=== PATIENT | male | born 1950 | race Caucasian/White ===

== ENCOUNTER 2025-06-10 07:39 | Outpatient (CLI) | payer MEDICARE, OTHER, SELFPAY ==
--- NOTE | ~2025-06-10 | PE_ITS ---
EXAMINATION: PET_PETPSMAST_PT DATE: 06/10/2025 09:49 INDICATION: Prostate cancer. TECHNIQUE: 4.970 mCi of Ga-68 gozetotide was administered intravenously. Low dose computed tomography (CT) images were acquired from the base of the brain to the proximal thighs for attenuation correction and anatomic localization. Automated exposure control was employed. Dose-length product (DLP) was 1156 mGy- cm. Positron emission tomography (PET) images were acquired in the same distribution. COMPARISON: None FINDINGS: Head/neck: There are no pathologically enlarged lymph nodes. Chest: There is peripheral septal thickening in the lungs, consistent with chronic interstitial lung disease. A calcified right lung nodule and calcified right hilar and mediastinal lymph nodes are consistent with old granulomatous disease. No pleural effusion. There is left atrial enlargement of the heart. No pericardial effusion. Abdomen/pelvis/proximal thighs: There are cysts in the liver measuring up to 10 mm. Calcifications in the liver consistent with old granulomatous disease. The gallbladder, spleen, pancreas, adrenal glands, and kidneys are normal. There is no urolithiasis. The prostate is mildly enlarged. There is increased activity in the peripheral zone on the right with maximum SUV of 7.5. There are no dilated loops of bowel. There are no pathologically enlarged lymph nodes. There is no free intraperitoneal fluid. There are changes of anterior and posterior fusion procedures at L5-S1 with interbody device and pedicle screws. IMPRESSION: 1. Mildly enlarged prostate with increased activity in the peripheral zone on the right, consistent with primary malignancy. No evidence of metastatic disease. Reviewed, dictated and finalized at location E. IMPRESSION: 1. Mildly enlarged prostate with increased activity in the peripheral zone on t he right, consistent with primary malignancy. No evidence of metastatic disease .
--- OUTSIDE RECORDS SUMMARY | 2025-06-10 07:43 | XMS_ITS | Encounter Summary ---
Author Organization [facility] Address [address] [place] [address] Care Team Providers Care Ticket Collector Or Usher Name Role Phone Sarah Lazcano [facility] Primary Care Provider + Encounter Details Date Type Department Care Team (Late st Contact Info) Description 03/10/2025 [employer] Message [facility] [address] [place] [address] [facility] [address] [facility] [address] [place] [address] A1C and PSA Social History Tobacco Use Types Packs/Day Years Used Date Smoking Tobacco: Never Smokeless Tobacco: Never Alcohol Use Standard Drinks/Week Comments Yes 0 (1 standard drink = 0.6 oz pur e alcohol) social PHQ-2 Answer Date Recorded Patient Health Questionnaire-2 Score 0 03/08/2025 Sex and Gender Information Value Date Recorded Sex Assigned at Not on file Legal Sex Male 7:15 PM CDT Gender Identity Not on file Sexual Orientation Not on file Travel History Travel Start Travel End [place] 04/11/2025 05/12/2025 documented as of this encounter Progress Notes * Amalia Penaloza RN - 03/11/2025 7:30 AM CDT TCO in result encounter. AMALIA PENALOZA RN 03/11/2025 documented in this encounter Plan of Treatment Not on file documented as of this encounter Visit Diagnoses Not on filedocumented in this encounter Care Teams Ticket Collector Or Usher Relationship Specialty Start Date End Date Sarah Lazcano, [facility]- [address] [facility], [address] [place] [address] PCP - General NURSE PRACTITIONER 03/08/25 documented as of this encounter
--- OUTSIDE RECORDS SUMMARY | 2025-06-10 07:43 | XMS_ITS | Encounter Summary ---
Author Organization [facility] Address [address] [place] [address] Care Team Providers Care Coat Hanger Shaper Machine Operator Name Role Phone Sarah Lazcano [facility] Primary Care Provider + Encounter Details Date Type Department Care Team (Late st Contact Info) Description 03/10/2025 Prep for Procedure [facility] General Surgery - [place] [address] [facility], [address] [place] [address] Zaid Harris MD [address] [facility] [address] [place], [place] [phone] Social History Tobacco Use Types Packs/Day Years [...] file Travel History Travel Start Travel End [place] 04/11/2025 05/12/2025 documented as of this encounter Plan of Treatment Not on file documented as of this encounter Visit Diagnoses Not on filedocumented in this encounter Care Teams Coat Hanger Shaper Machine Operator Relationship Specialty Start Date End Date Sarah Lazcano, [facility] [address] [facility], [address] [place] [address] PCP - General NURSE PRACTITIONER 03/08/25 documented as of this encounter
--- OUTSIDE RECORDS SUMMARY | 2025-06-10 07:43 | XMS_ITS | Encounter Summary ---
Author Organization [facility] Address [address] [place] [address] Care Team Providers Care Flexo Press Operator Name Role Phone Minda Woodward Nurse Student Primary Care Prov Sarah Richardson [facility] Primary Care Provider + Encounter Details Date Type Department Care Team (Late st Contact Info) Description 05/12/2020 Prep for Procedure [facility] [address] [place], [place] [phone] Obed Padron MD [address] [phone] Social History Tobacco Use Types Packs/Day Years Used Date Smoking Tobacco: Never Smokeless Tobacco: Never Alcohol Use Standard Drinks/Week Comments Yes 0 (1 standard drink = 0.6 oz pur e alcohol) social Sex and Gender Information Value Date Recorded Sex Assigned at Not on file Legal Sex Male 7:15 PM CDT Gender Identity Not on file Sexual Orientation Not on file Travel History Travel Start Travel End [place] 04/11/2025 05/12/2025 COVID-19 Exposure Response Date Recorded In the last month, have you been in contact with someone who was confirmed or suspected to have Coronavirus / COVID-19? No / Unsure 2020 10:36 AM CDT documented as of this encounter Plan of Treatment Not on file documented as of this encounter Results * PRE-SURGICAL/PRE-PROCEDURE CORONAVIRUS (COVID 19) (05/16/2020 11:22 AM CDT) CORONAVIRUS SARS COV 2 PCR (RESP) NOT DETECTED NOT DETECTED 05/17/2020 5:01 PM CDT [facility] Comment: A Not Detected (negative) test result for this test means that SARS- CoV-2 RNA was not present in the specimen above the limit of detection. A negative result does not rule out the possibility of COVID-19 and should not be used as the sole basis for treatment or patient management decisions. If COVID-19 is still suspected, based on exposure history together with other clinical findings, re-testing should be considered in consultation with public health authorities. Laboratory test results should always be considered in the context of clinical observations and epidemiological data in making a final diagnosis and patient management decisions. Please review the Fact Sheets and FDA authorized labeling available for health care providers and patients using the following websites: https://www.[employer]/home/Covid-19/HCP/NAAT/fact-sheet2 https://www.[employer]/home/Covid-19/Patients/NAAT/ fact-sheet2 This test has been authorized by the FDA under an Emergency Use Authorization (EUA) for use by authorized laboratories. Due to the current public health emergency, [facility] is receiving a high volume of samples from a wide variety of swabs and media for COVID-19 testing. In order to serve patients during this public health crisis, samples from appropriate clinical sources are being tested. Negative test results derived from specimens received in non-commercially manufactured viral collection and transport media, or in media and sample collection kits not yet authorized by FDA for COVID-19 testing should be cautiously evaluated and the patient potentially subjected to extra precautions such as additional clinical monitoring, including collection of an additional specimen. Methodology: Nucleic Acid Amplification Test (NAAT) includes PCR or TMA Additional information about COVID-19 can be found at the [facility] website: www.[employer]/Covid19. Test performed at [facility] [address] [place] [address] Director: ZOEY EVANS DO,MPH NASOPHARYNGEAL SWAB / Unknown 05/16/2020 11:22 AM CDT Obed Padron MD MICROBIOLOGY - GENERAL ORDERABLE S Final Result [facility] [address] [place] [address], documented in this encounter Visit Diagnoses Diagnosis Preop testing- Primary Preoperative examination, unspecified documented in this encounter Additional Health Concerns Infection Onset Date Last Indicated Resolved Time COVID-19 Rule Out 05/16/2020 05/16/2020 05/17/2020 5:01 PM CDT documented as of this encounter Care Teams Flexo Press Operator Relationship Specialty Start Date End Date Minda Woodward, Nurse Student PCP - General 03/02/20 03/07/25 Sarah Lazcano, ENDO TECH- [address] [facility], [address] [place] [address] PCP - General NURSE PRACTITIONER 03/08/25 documented as of this encounter
--- OUTSIDE RECORDS SUMMARY | 2025-06-10 07:43 | XMS_ITS | Clinical Summary ---
Author Organization [facility] Address [address] [place] [address] Care Team Providers Care Shower Room Attendant Name Role Phone Unavailable Primary Care Provider Unavailabl e Immunizations Immunization Administration Dates Next Due Covid-19, Mrna, Lnp-s, PF, 1 00 mcg/0.5 mL Dose (Moderna) 07/07/2021 Social History Tobacco Use Types Packs/Day Years Used Date Smoking Tobacco: Never Assessed Sex and Gender Information Value Date Recorded Sex Assigned at Not on file Legal Sex Male 11:57 AM CDT Gender Identity Not on file Sexual Orientation Not on file Plan of Treatment Health Maintenance Due Date Last Done Comments Hepatitis C Virus (HCV) Screening 1950 TdaP Immunization 1950 Cologuard 1996 Colonoscopy 1996 Colorectal Cancer Screening 1996 Immunochemical Fecal Occult Blood 1996 Pneumococcal Immunization (5 0+ years) (1 of 1 - PCV) 2001 Influenza Immunization (#1) 05/16/202506/16, 08/03/2019, 06/19/2017 SARS-COV-2 Immunization ( season) 2025 07/07/2021, 12/13/2020, 11/14/2020 Respiratory Syncytial Virus (RSV) Immunization (Adult) (1 - 1-dose 75+ series) 2026 Zoster Immunization Completed 07/16/2019, 01/27/2019, 08/03/2014 Hepatitis B Immunization Aged Out No longer eligible based on patient's age to complete this topic Human Papillomavirus (HPV) Immunization Aged Out No longer eligible b ased on patient's age to complete this topic Meningococcal Immunization (ACWY) Aged Out No longer eligible b ased on patient's age to complete this topic Rotavirus Immunization Aged Out No lo nger eligible based on patient's age to complete this topic
--- OUTSIDE RECORDS SUMMARY | 2025-06-10 07:43 | XMS_ITS | Encounter Summary ---
Author Organization [facility] Address [address] [place] [address] Care Team Providers Care Invas Tech Name Role Phone Minda Woodward Nurse Student Primary Care Prov Sarah Richardson [facility] Primary Care Provider + Encounter Details Date Type Department Care Team (Late st Contact Info) Description 04/07/2020 Prep for Procedure [facility] [place], [place] [phone] Obed Padron MD [address] [phone] Social History Tobacco Use Types Packs/Day Years [...] file Travel History Travel Start Travel End [place] 04/11/2025 05/12/2025 COVID-19 Exposure Response Date Recorded In the last month, have you been in contact with someone who was confirmed or suspected to have Coronavirus / COVID-19? No / Unsure 03/27/2020 11:23 AM CDT documented as of this encounter Plan of Treatment Not on file documented as of this encounter Results * PRE-SURGICAL/PRE-PROCEDURE CORONAVIRUS (COVID 19) (04/07/2020 1:00 PM CDT) CORONAVIRUS SARS COV 2 PCR (RESP) NOT DETECTED NOT DETECTED 04/08/2020 3:08 PM CDT [facility] Comment: A Not Detected (negative) test result [...] providers and patients using the following websites: https://www.[employer].Fundrise/home/Covid-19/HCP/NAAT/fact-sheet2 https://www.[employer]rise/home/Covid-19/Patients/NAAT/ fact-sheet2 This test has been authorized by the FDA under an Emergency Use Authorization (EUA) for use by authorized laboratories. Due to the current public health emergency, [facility] is receiving a high volume of samples [...] about COVID-19 can be found at the [facility] website: www.[employer].Fundrise/Covid19. Test performed at [facility] [address] [place] [address] Director: ZOEY EVANS DO,MPH NASOPHARYNGEAL SWAB / Unknown 04/07/2020 1:00 PM CDT Obed Padron MD MICROBIOLOGY - GENERAL ORDERABLE S Final Result [facility] [address] [place] [address], documented in this encounter Visit Diagnoses Diagnosis History of esophagogastroduodenoscopy (EGD)- Primary documented in this encounter Additional Health Concerns Infection Onset Date Last Indicated Resolved Time COVID-19 Rule Out 04/07/2020 04/07/2020 04/08/2020 3:08 PM CDT COVID-19 Rule Out 05/16/2020 05/16/2020 05/17/2020 5:01 PM CDT documented as of this encounter Care Teams Invas Tech Relationship Specialty Start Date End Date Minda Woodward, Nurse Student PCP - General 03/02/20 03/07/25 Sarah Lazcano, BELT FIXER- [address] [facility], [address] [place] [address] PCP - General NURSE PRACTITIONER 03/08/25 documented as of this encounter
--- OUTSIDE RECORDS SUMMARY | 2025-06-10 07:44 | XMS_ITS | Clinical Summary ---
Author Organization [facility] Address [address] [place] [address] Care Team Providers Care School Bus Attendant Name Role Phone Sarah Lazcano NP Primary Care Provide r Sangeeta Ramirez OD Unavailable [phone] Allergies No known active allergies Medications atorvastatin (LIPITOR) 20 mg tabletIndicatio ns:hyperlipidem ia Take 1 tablet (20 mg total) by mouth every morning Active sildenafiL (VIAGRA) 100 mg tablet Take 1 tablet (100 mg total) by mouth as needed for erectile dysfunction 0 Active CertaVite Senior-Antioxid ant 0.4-300-250 mg-mcg-mcg tabletIndicatio ns:Vitamin Deficiency Prevention Take 1 tablet by mouth every morning 0 Active cetirizine (ZyrTEC) 10 mg tabletIndicatio ns:Allergic Rhinitis Take 1 tablet (10 mg total) by mouth as needed for allergies 0 Active fexofenadine (SOLITARIO) 180 mg tabletIndicatio ns:Allergic Rhinitis Take 1 tablet (180 mg total) by mouth as needed Active Jardiance 10 mg tabletIndicatio ns:type 2 diabetes mellitus Take 1 tablet (10 mg total) by mouth every morning 1 Active fluticasone propionate (FLONASE) 50 mcg/actuation nasal sprayIndication s:Allergic Rhinitis Administer 2 sprays into each nostril daily 2 Active lisinopriL (PRINIVIL,ZESTR IL) 10 mg tabletIndicatio ns:hypertension Take 1 tablet (10 mg total) by mouth every morning 2 Active miconazole 2 % cream 2 Active acetaminophen (TYLENOL) 500 mg tablet Take 1 tablet (500 mg total) by mouth every 6 (six) hours as needed for pain Active oxyCODONE (ROXICODONE) 5 mg immediate release tabletIndicatio ns:Pain Take 1 tablet (5 mg total) by mouth every 4 (four) hours as needed for pain 20 tablet 2 Active docusate sodium (COLACE) 100 mg capsuleIndicati ons:constipatio n Take 1 capsule (100 mg total) by mouth 2 (two) times a day 60 capsule 2 Active clotrimazole 1 % cream 5 Active nystatin powder 5 Active tadalafiL (CIALIS) 20 mg tablet 5 Active tirzepatide (Mounjaro) 2.5 mg/0.5 mL pen injector injection Inject 0.5 mL (2.5 mg total) under the skin once a week 5 Active omeprazole (PriLOSEC) 20 mg capsule 5 Active Active Problems Problem Noted Date Diagnosed Date Diabetes mellitus type 2 without retinopathy Assessment & Plan (05/05/2025 4:19 PM CDT): No DME on OCT Pt ed. Stressed BG control (HbA1C<7) to reduce the risk for diabetic ocular complications. PVD (posterior vitreous detachment), left eye Assessment & Plan (07/12/2024 11:46 AM CDT): No holes/breaks/tears on exam. Educated on s/s of a retinal detachment/tear, RTC STAT if any new onset flashes, floaters or curtain veiling. RTC 05/09 w/ Dr. Gautam for annual, sooner if symptoms worsen Assessment & Plan (06/02/2024 11:38 AM CDT): Small vitreous (vit) heme inf w/ martin ring. No holes/breaks/tears on dilated exam. Educated on s/s of a retinal detachment/tear, RTC STAT if any new onset flashes, floaters, curtain veiling. RTC 1 month for DFE left eye (OS) (pt will be out of town until end of Oct - will schedule when back) Optic cupping of both eyes 05/10/2024 Epiretinal membrane (ERM) of left eye 05/10/2024 Assessment & Plan (05/05/2025 4:16 PM CDT): Best-corrected visual acuity (BVA) remains good Stable on OCT Assessment & Plan (06/02/2024 11:39 AM CDT): Stable, monitor. Hyperopia of both eyes 05/04/2024 Assessment & Plan (05/04/2024 12:54 PM CDT): Release updated glasses Rx Interested in CLs- recommend soft contact lens (CL) fitting/refer to Dr. Ramirez Age-related nuclear cataract of both eyes 2023 Assessment & Plan (05/05/2025 4:16 PM CDT): Pt is asymptomatic. Defer cataract extraction (CE) until signs/sx indicate. Recommend UV eye protection. Release updated glasses Rx Assessment & Plan (06/02/2024 11:39 AM CDT): Stable, monitor. Assessment & Plan (05/04/2024 12:54 PM CDT): Pt is asymptomatic. Defer cataract extraction (CE) until signs/sx indicate. Recommend UV eye protection. Peyronie's disease 03/28/2022 Overview (03/28/2022): Added automatically from request for surgery [id number] Spondylolisthesis of lumbar region 01/29/2021 Overview (01/29/2021): Added automatically from request for surgery [id number] Displacement of lumbar intervertebral disc 07/05 Lumbago 07/04/2020 Lumbar radiculopathy 07/04/2020 Acid reflux disease 05/05/2020 Overview (01/30/2022): Added automatically from request for surgery [id number] History of total right knee replacement 01/02/20 16 Osteoarthritis of knee 10/11/2015 Surgical follow-up care 11/27/2012 Encounters Date Type Department Care Team Description 05/05/2025 1:30 PM CDT Office Visit [facility] Ophthalmology [facility] [address] [facility], [address] [place] [address] Melisa Gautam, OD Age-related nuclear cataract of both eyes (Primary Dx); Epiretinal membrane (ERM) of left eye; Optic cupping of both eyes; Hyperopia of both eyes; Diabetes mellitus type 2 without retinopathy (HCC) 05/05/2025 12:40 PM CDT Imaging Exam [facility] [address] [place] [address] Epiretinal membrane (ERM) of left eye; Acute angle-closure glaucoma, left eye 04/04/2025 Orders Only [facility] Ophthalmology [address] [facility] [address], [address] [place] [address] Melisa Gautam, OD Epiretinal membrane (ERM) of left eye (Primary Dx) from Last 3 Months Immunizations Immunization Administration Dates Next Due Influenza, Trivalent, Adjuvanted, Intramuscular 08/03/2019 Influenza, Trivalent, Preservative Free, Intramu scular 07/06/2012 Influenza, Unspecified 06/15/2020 Moderna SARS-CoV-2 Monovalent Vaccination (12+ Y RS) 12/13/2020,11/14/2020 Surgical History Surgery Date Site/Laterality Comments REPLACEMENT TOTAL KNEE 09/15/2012 - 09/14/2013 Left REPLACEMENT TOTAL KNEE 09/15/2015 - 09/14/2016 Right TONSILLECTOMY 09/15/1953 - 09/14/1954 EYE SURGERY 09/15/2013 - 09/14/2014 KNEE SURGERY 09/15/1972 - 09/14/1973 BACK SURGERY 09/15/2020 - 09/14/2021 Medical History Medical History Date Comments Aftercare following joint re placement surgery Aftercare following joint replacement - (Added by TRACI Conv) Ear problems Dermatitis Gastric reflux Mitral valve prolapse Sinusitis Arthritis Sleep apnea Dermographism Nuclear sclerotic cataract, bilateral Hyperopia with presbyopia, bilateral Wears glasses PVD (posterior vitreous deta chment), left eye 07/12/2024 Epiretinal membrane (ERM) of left eye Optic cupping, bilateral C/D rat io OU (0.4) Family History Medical History Relation Name Comments Hypertension Mother Anesthesia problems Neg Hx Relation Name Status Comments Father Mother Social History Tobacco Use Types Packs/Day Years Used Date Smoking Tobacco: Never Smokeless Tobacco: Never Tobacco Cessation:Counseling Given: No Alcohol Use Standard Drinks/Week Comments Yes 0 (1 standard drink = 0.6 oz pur e alcohol) SELDOM WINE DRINKER AUDIT-C Answer Date Recorded Q1: How often do you have a drink containing alc ohol? Monthly or less 05/03/2022 Q2: How many drinks containi ng alcohol do you have on a typical day when you are drinking? 1 or 2 05/03/2022 Q3: How often do you have si x or more drinks on one occasion? Never 05/03/2022 PHQ-2 Answer Date Recorded PHQ-2 Total Score (If total score is 3 or more points, staff should administer the PHQ-9) 0 02/07/2021 Sex and Gender Information Value Date Recorded Sex Assigned at Not on file Legal Sex Male 11:56 PM [employer] Gender Identity Male 01/28/2020 10:38 PM CDT Sexual Orientation Not on file Occupation Industry Job Start Date Job End Date Retired Not on file Not on file Not on file Obstetrics History Last Filed Vital Signs Vital Sign Reading Time Taken Comments Blood Pressure 129/84 05/03/2022 12:20 PM CDT Pulse 58 05/03/2022 12:25 PM CDT Temperature 36.2 C (97.2 F) 05/03/2022 8:44 AM CDT Respiratory Rate 14 05/03/2022 12:2 5 PM CDT Oxygen Saturation 100% 05/03/2022 12: 25 PM CDT Inhaled Oxygen Concentration - - Weight 98.9 kg (218 lb) 04/22/2022 11:0 0 AM CDT Height 182.9 cm (6') 04/22/2022 11:00 AM CDT pt is 6f 0.5 inches Body Mass Index 29.57 04/22/2022 11:00 AM CDT Plan of Treatment Health Maintenance Due Date Last Done Comments Albumin Creatinine Ratio, Urine 1950 Colon Cancer Screening-Colonoscopy 1950 Hemoglobin A1C 1950 Hepatitis C Screening 1950 eGFR 1950 Foot Exam 1950 Well Visit 65+ 2016 Depression Screening 01/29/2022 01/29/2021 Fall Risk Assessment 05/03/2023 05/03/2022 Covid-19 Vaccine (2024- 6 season) 2025 07/07/2021, 12/13/2020, 11/14/2020 Influenza Vaccine (#1) 2025 , 07/05/2020, 06/15/2020, Additional history exists Lipid Panel 03/08/2026 03/08/2025 Dilated Eye Exam 05/05/2026 05/05/2025, , 06/02/2024, Additional history exists DTaP/Tdap/Td Vaccine (3 - Td or Tdap) 11/19/2027 11/18/2017, 10/24/2007, 10/15/1997, Additional history exists Hepatitis B Screening Completed 02/22/1993 Pneumococcal vaccine 65+ Completed 11/18/2017, 07/17 Zoster Vaccine Completed 07/16/2019, 01/13, 08/03/2014 Medical Devices Implanted Type Area Junior Analyst Device Identifier Shelf Expiration Date Model / Serial / Lot [employer] [id number] r Estefaniron Ia [id number] 17mm 20deg - [id number] Implanted:Qty: 1 on 02/07/2021 by Santana Allen MD at [facility] N/A: Spine Lumbar [employer] 10/27/2030 [id number] / / [id number] [employer] [id number] - [id number] - [id number] Implanted:Qty: 1 on 02/07/2021 by Santana Allen MD at [facility] N/A: Spine Lumbar [employer] 12/19/2025 [id number] / [id number] / Medtronic Sofamor Danek [id number] Infuse 18mm 26mm Absorbable Sponge Sterile Water Syringe Needle - [id number] Implanted:Qty: 1 on 02/07/2021 by Santana Allen MD at [facility] N/A: Spine Lumbar [employer] [id number] / / [employer] 1135.0027 Mis 27mm Lumbar Edward Spinal - [id number] Implanted:Qty: 1 on 02/07/2021 by Santana Allen MD at [facility] N/A: Spine Lumbar [employer] 1135.0027 / / [employer] 1067.4655 Creo Amp 6.5mm 55mm Cannulated Modular Spine Screw Bone - [id number] Implanted:Qty: 2 on 02/07/2021 by Santana Allen MD at [facility] N/A: Spine Lumbar [employer] 1067.4655 / / [employer] 1067.4760 Creo 7.5mm 60mm Cannulated Modular Spine Screw Bone - [id number] Implanted:Qty: 2 on 02/07/2021 by Santana Allen MD at [facility] N/A: Spine Lumbar [employer] [id number] / / [employer] 1134.01 Creo Mis 30mm Modular Polyaxial Tulip Head Screw Bone - [id number] Implanted:Qty: 4 on 02/07/2021 by Santana Allen MD at [facility] N/A: Spine Lumbar [employer] 1134.0100 / / [employer] 1134.001 Creo Spinal Cap Locking Nonsterile Mis - [id number] Implanted:Qty: 4 on 02/07/2021 by Santana Allen MD at [facility] N/A: Spine Lumbar [employer] 1134.0010 / / [employer] 7134.705 Creo Mis 5.5mm 50mm Curve Shawn Spinal Cocr - [id number] Implanted:Qty: 2 on 02/07/2021 by Santana Allne MD at [facility] N/A: Spine Lumbar [facility] [id number] / / Procedures Procedure Name Priority Date/Time Associated Diagnosis Comments OCT, RETINA - OU - BOTH EYES Routine 05/05/2025 12:28 PM CDT Epiretinal membrane (ERM) of left eye OCT, OPTIC NERVE - OU - BOTH EYES Routine 05/05/2025 12:28 PM CDT Epiretinal membrane (ERM) of left eye Acute angle-closure glaucoma, left eye from Last 3 Months Results * OCT, Retina - OU - Both Eyes (05/05/2025 12:28 PM CDT) Anatomical Region Laterality Modality Head Other Narrative 05/05/2025 4:18 PM CDT Right Eye Quality was good. Scan locations included subfoveal. Left Eye Quality was good. Scan locations included subfoveal. Notes Right eye (OD) normal Left eye (OS): para foveal epiretinal membrane (ERM) superior Melisa Gautam OD OPHTH TOMOGRAPHY Final Res ult * OCT, Optic Nerve - OU - Both Eyes (05/05/2025 12:28 PM CDT) Anatomical Region Laterality Modality Head Other Narrative 05/05/2025 4:17 PM CDT Right Eye Reliability was good. Temporal thickness was normal. Superior thickness was normal. Nasal thickness was normal. Inferior thickness was normal. Left Eye Reliability was good. Temporal thickness was normal. Superior thickness was normal. Nasal thickness was normal. Inferior thickness was normal. Melisa Gautam OD OPHTH TOMOGRAPHY Final Res ult from Last 3 Months Insurance MEDICARE FOR LIFE MEDICARE FOR LIFE MEDICARE MEDICARE FOR LIFE Advance Directives For more information, please contact: [phone] * Full Code (Latest Code Status on File) Date Activated Date Inactivated Comments 02/07/2021 8:23 PM 02/09/2021 8:25 PM Care Teams School Bus Attendant Relationship Specialty Start Date End Date Sarah Lazcano NP [address], [address] [place] [id number] PCP - General Nurse Practitioner 8/21/25 Sangeeta Ramirez, OD [address] [facility] [id number] [place] [address] Consulting Physician Optometry 05/05/25
--- OUTSIDE RECORDS SUMMARY | 2025-06-10 07:44 | XMS_ITS | Clinical Summary ---
Author Organization [facility] Address Formerly [facility], [facility] [place] [address] Care Team Providers Care Transit Planning Director Name Role Phone NenoSarah calvin [facility] Primary Care Provider + Allergies No known active allergies Medications acetaminophen (TYLENOL) 500 MG tablet Take 1 tablet (500 mg total) by mouth every 6 (six) hours as needed. FOR PAIN Active ALLERGY, CETIRIZINE, 10 MG tablet daily as needed. 020 Active atorvastatin (LIPITOR) 20 MG tabletIndications :Mixed hyperlipidemia Take 1 tablet (20 mg total) by mouth daily. 90 tablet 1 025 Active clotrimazole (LOTRIMIN) 1 % creamIndications: Marilyn infection Apply topically 2 (two) times daily. 113 g 1 025 Active Additional Information Patient taking differently:Topical2 times daily PRN, Reported on 05/12/2025 fexofenadine (SOLITARIO) 180 MG tabletIndications :Seasonal allergic rhinitis due to pollen Take 1 tablet (180 mg total) by mouth daily. 30 tablet 6 025 Active Additional Information Patient taking differently:180 mg OralDAILY PRN, Reported on 05/18/2025 fluticasone propionate (FLONASE) 50 MCG/ACT nasal sprayIndications: Seasonal allergic rhinitis due to pollen 2 sprays by Each Nostril route daily. 16 g 6 025 Active Additional Information Patient taking differently:2 spray Each NostrilDAILY PRN, Rhinitis, Allergies, Reported on 05/18/2025 omeprazole (PRILOSEC) 20 MG capsuleIndication s:Gastroesophagea l reflux disease without esophagitis Take 1 capsule (20 mg total) by mouth daily. 90 capsule 1 025 Active tirzepatide (MOUNJARO) 2.5 MG/0.5ML injectionIndicati ons:Diabetes Mellitus Inject 2.5 mg into the skin every 7 days. Indications: Diabetes 6 mL 1 025 Active tadalafil (CIALIS) 20 MG tablet Take 1 tablet (20 mg total) by mouth daily as needed for Erectile Dysfunction. 025 Active empagliflozin (JARDIANCE) 25 MG tabletIndications :Type 2 diabetes mellitus with hyperglycemia, without long-term current use of insulin ([facility]) Take 1 tablet (25 mg total) by mouth daily. 90 tablet Active JARDIANCE 10 MG tabletIndications :Type 2 diabetes mellitus with hyperglycemia, without long-term current use of insulin ([facility]) Take 1 tablet (10 mg total) by mouth daily. 90 tablet 1 025 2024 Discontinued(D ose adjustment) empagliflozin (JARDIANCE) 25 MG tabletIndications :Type 2 diabetes mellitus with hyperglycemia, without long-term current use of insulin ([facility]) Take 1 tablet (25 mg total) by mouth daily. 90 tablet 025 2024 Discontinued Active Problems Problem Noted Date Diagnosed Date Elevated PSA 05/18/2025 Chronic low back pain 04/05/2025 Acid reflux disease 05/05/2020 Overview (05/05/2020): Added automatically from request for surgery [id number] Resolved Problems Problem Noted Date Diagnosed Date Resolved Date Screen for colon cancer 03/10/2025 06 Screen for colon cancer 03/10/202504/15 Screen for colon cancer 03/10/202504/15 Screen for colon cancer 03/10/2025 0909/2024 Encounters Date Type Department Care Team Description 05/30/2025 MyChart Message [facility] [address] [place] [address] Sarah Lazcano, CROP PULLER-BC Jardiance 05/18/2025 8:05 AM CDT Anesthesia [place] [address] Gus Arnold MD Jarvis, Brittany L, CNP 05/18/2025 7:30 AM CDT - 05/18/2025 8:14 AM CDT [place] [address] Huan Rhodes MD TRANSRECTAL ULTRASOUND FUSION-GUIDED PROSTATE BIOPSY 05/18/2025 5:30 AM CDT - 05/18/2025 9:25 AM CDT Hospital Encounter [facility] [address] Huan Rhodes MD Discharge Disposition: Home or Self Care (Routine Discharge) 05/18/2025 Travel 05/12/2025 4:05 PM CDT - 05/12/2025 11:59 PM CDT Hospital Encounter [facility] [address] [place] [address], [place] [address] Huan Rhodes MD Discharge Disposition: Home or Self Care (Routine Discharge) 05/12/2025 Prep for Procedure [facility] [address] [place] [address], [place] [address] Huan Rhodes MD 05/12/2025 Travel 05/10/2025 8:07 AM CDT - 05/10/2025 8:30 AM CDT [facility] [address] [place] [place] [address] Zaid Harris MD COLONOSCOPY 05/10/2025 8:06 AM CDT Anesthesia Event [facility] [address] [place] [address] Gus Cruz CRNA Portera Mankins, Sally B, MD 05/10/2025 6:44 AM CDT - 05/10/2025 9:25 AM CDT Hospital Encounter [facility] [address] [place] [address] Zaid Harris MD Discharge Disposition: Home or Self Care (Routine Discharge) 05/10/2025 Travel 05/06/2025 12:50 PM CDT - 05/06/2025 11:59 PM CDT Hospital Encounter [facility] [address] [place] [address] Kya Prajapati, PT Sarah Lazcano, CROP PULLER-BC Low Back Pain (06/24 PN) Discharge Disposition: Home or Self Care (Routine Discharge) 05/06/2025 Travel 05/03/2025 1:16 PM CDT - 05/03/2025 11:59 PM CDT Hospital Encounter [facility] [address] [place] [address] Sarah Lazcano, CROP PULLER-BC Jessica Ashton, INSTRUMENT REPAIRER STEAM PLANT Low Back Pain (05/25) Discharge Disposition: Home or Self Care (Routine Discharge) 05/03/2025 Travel 05/02/2025 Scan [facility] 2025 10:14 AM CDT - 2025 11:59 PM CDT Hospital Encounter [facility] [address] [place] [address] Sarah Lazcano, CROP PULLER-BC Wilmer Britt, INSTRUMENT REPAIRER [employer] Low Back Pain (04/24) Discharge Disposition: Home or Self Care (Routine Discharge) 2025 Travel 04/26/2025 10:11 AM CDT - 04/26/2025 11:59 PM CDT Hospital Encounter [facility] [address] [place] [address] Sarah Lazcano, CROP PULLER-BC Jessica Ashton, INSTRUMENT REPAIRER [employer] Low Back Pain (7/10) Discharge Disposition: Home or Self Care (Routine Discharge) 04/26/2025 MyChart Message [facility] [address] [place] [address] Sarah Lazcano [facility] Bhandari 04/26/2025 Travel 04/21/2025 10:45 AM CDT - 04/21/2025 11:59 PM CDT Hospital Encounter [facility] [address] [place] [address] Sarah Lazcano, [facility]-Wilmer Walsh, INSTRUMENT REPAIRER [employer] Low Back Pain (02/22) Discharge Disposition: Home or Self Care (Routine Discharge) 04/21/2025 Travel 04/19/2025 10:15 AM CDT - 04/19/2025 11:59 PM CDT Hospital Encounter [facility] [address] [place] [address] Sarah Lazcano, [facility]-Jessica Redmond, INSTRUMENT REPAIRER [employer] Low Back Pain (01/22) Discharge Disposition: Home or Self Care (Routine Discharge) 04/19/2025 Travel 04/14/2025 1:12 PM CDT - 04/14/2025 11:59 PM CDT Hospital Encounter [facility] [address] [place] [address] Sarah Lazcano, [facility]Wilmer Walsh, INSTRUMENT REPAIRER [employer] Low Back Pain (12/23) Discharge Disposition: Home or Self Care (Routine Discharge) 04/14/2025 Travel 04/12/2025 9:47 AM CDT - 04/12/2025 11:59 PM CDT Hospital Encounter [facility] [address] [place] [address] Sarah Lazcano [facility]-Jessica Redmond, INSTRUMENT REPAIRER [employer] Low Back Pain (10) Discharge Disposition: Home or Self Care (Routine Discharge) 04/12/2025 Travel 04/07/2025 1:15 PM CDT - 04/07/2025 11:59 PM CDT Hospital Encounter [facility] [address] [place] [address] Sarah Lazcano, CROP PULLER-BC Wilmer Britt, INSTRUMENT REPAIRER [employer]ANT Low Back Pain (10/25) Discharge Disposition: Home or Self Care (Routine Discharge) 04/07/2025 Travel 04/05/2025 10:24 AM CDT - 04/05/2025 11:59 PM CDT Hospital Encounter [facility] [address] [place] [address] Liliane Leon, PT Sarah Lazcano, CROP PULLER-BC Kya Prajapati, PT Low Back Pain (09/24) Discharge Disposition: Home or Self Care (Routine Discharge) 04/05/2025 Travel 04/04/2025 MyChart Message Enc [facility] [address] [place] [address] Sarah Lazcano, CROP PULLER-BC PSA - Urologist 04/04/2025 Travel 04/01/2025 MyChart Message Enc [place] [id number] [place] [address] Sarah Lazcano, CROP PULLER-BC Mounjaro 2.5 mg 03/10/2025 MyChart Message [place] [address] [place] [address] Sarah Lazcano, CROP PULLER-BC A1C and PSA 03/10/2025 Telephone [facility] [place] [id number] [facility], [address] [place] [address] Zaid Harris MD Schedule Surgery 03/10/2025 Prep for Procedure [facility] Surgery - [place] [address] [facility], [address] [place] [address] Zaid Harris MD 03/10/2025 Prep for Procedure [facility] General Surgery - [place] [address] [facility], [address] [place] [address] Zaid Harris MD from Last 3 Months Family History Medical History Relation Comments No Known Problems Father No Known Problems Maternal Aunt No Known Problems Maternal Grandfather No Known Problems Maternal Grandmother No Known Problems Maternal Uncle Hypertension Mother No Known Problems Paternal Aunt No Known Problems Paternal Grandfather No Known Problems Paternal Grandmother No Known Problems Paternal Uncle Relation Status Comments Father Maternal Aunt Maternal Grandfather Maternal Grandmother Maternal Uncle Mother Paternal Aunt Paternal Grandfather Paternal Grandmother Paternal Uncle Social History Tobacco Use Types Packs/Day Years Used Date Smoking Tobacco: Never Smokeless Tobacco: Never Tobacco Cessation:Counseling Given: No Alcohol Use Standard Drinks/Week Comments Yes 1 (1 standard drink = 0.6 oz pur e alcohol) social PHQ-2 Answer Date Recorded Patient Health Questionnaire-2 Score 0 03/08/2025 Sex and Gender Information Value Date Recorded Sex Assigned at Not on file Legal Sex Male 7:15 PM CDT Gender Identity Not on file Sexual Orientation Not on file Travel History Travel Start Travel End [place] 04/11/2025 05/12/2025 Last Filed Vital Signs Vital Sign Reading Time Taken Comments Blood Pressure 141/82 05/18/2025 9:25 AM CDT Pulse 59 05/18/2025 9:25 AM CDT Temperature 36.4 C (97.6 F) 05/18/2025 9:25 AM CDT Respiratory Rate 16 05/18/2025 9:25 AM CDT Oxygen Saturation 98% 05/18/2025 9:25 AM CDT Inhaled Oxygen Concentration - - Weight 93.7 kg (206 lb 9.1 oz) 05/18/2025 6:00 A M CDT Height 182.9 cm (6') 05/18/2025 6:00 AM CDT Body Mass Index 28.02 05/18/2025 6:00 AM CDT Plan of Treatment Health Maintenance Due Date Last Done Comments Diabetes: Retinopathy Eye Exam 1969 Annual Medicare Wellness Visit 2016 COVID-19 Vaccine ( season) 2025 06/07/2024, 07/30/2022, 07/07/2021, Additional history exists Hemoglobin A1C 09/07/2025 03/08/2025 Kidney Health Evaluation 03/08/2026 03/08/2025 Lipid Panel 03/08/2026 03/08/2025 RSV Immunization or 60+ Years (1 - 1-dose 75+ series) 2026 DTaP, Tdap and Td Vaccines (3 - Td or Tdap) 11/19/2027 11/18/2017, 10/24/2007, 10/15/1997, Additional history exists Colorectal Cancer Screening Colonoscopy (10 Years) 05/10/2035 05/10/2025 Meningococcal Vaccine Aged Out 08/20/2002 , 03/26/2002, 03/26/1997 No longer eligible based on patient's age to complete this topic Pneumococcal Vaccine: 50+ Years Completed 11/18/2017, 08/05/2016 Zoster Vaccines Completed 07/16/2019, 01/13, 08/03/2014 Hepatitis C Completed 03/08/2025 PHQ-2 (Physician [place]) Completed 03/08/2025 Meningococcal B Vaccine Aged Out No l onger eligible based on patient's age to complete this topic RSV Immunizations Under 20 Months Aged Out No longer eligible based on patient's age to complete this topic Medical Devices Implanted Type Area Pipe Fitter Supervisor Maintenance Device Identifier Shelf Expiration Date Model / Serial / Lot Knee Components Knee Components Procedures Procedure Name Priority Date/Time Associated Diagnosis Comments POCT GLUCOSE - DOCKED DEVICE Routine 05/18/2025 8:32 AM CDT BIOPSY OF PROSTATE,NEEDLE/PUNC H 05/18/2025 8:06 AM CDT ELEVATED PROSTATE SPECIFIC ANTIGEN R97.20 Case Notes SCHED BY FAX 05/12/2025 Special Needs [facility] CONFIRMATION # [id number] POCT GLUCOSE - DOCKED DEVICE Routine 05/18/2025 6:35 AM CDT PATHOLOGY Routine 05/18/2025 12:00 AM CDT URINE BACTERIA CULTURE Routine 05/12/2025 4:19 PM CDT Elevated prostate specific antigen (PSA) Diabetes mellitus treated with oral medication ([facility]) PROTHROMBIN TIME, VENOUS Routine 05/12/2025 4:12 PM CDT Elevated prostate specific antigen (PSA) H/O diabetes mellitus PARTIAL THROMBOPLASTIN TIME,PTT Routine 05/12/2025 4:12 PM CDT Elevated prostate specific antigen (PSA) Inadequately controlled diabetes mellitus (CMS/HCC HHS/HCC) HC URINALYSIS AUTO W/O MICRO Routine 05/12/2025 4:12 PM CDT Elevated prostate specific antigen (PSA) BASIC METABOLIC PANEL Routine 05/12/2025 4:12 PM CDT Elevated prostate specific antigen (PSA) CBC W/DIFF AUTOMATED Routine 05/12/2025 4:12 PM CDT Elevated prostate specific antigen (PSA) COLONOSCOPY FLX DX W/COLLJ SPEC WHEN PFRMD 05/10/2025 8:02 AM CDT Screen for colon cancer Special Needs Patient is diabetic. POCT GLUCOSE - DOCKED DEVICE Routine 05/10/2025 7:36 AM CDT COLONOSCOPY Routine 05/10/2025 7:09 AM CDT HEPATITIS C ANTIBODY Routine 03/08/2025 1:56 PM CDT Need for hepatitis C screening test LIPID PANEL Routine 03/08/2025 1:56 PM CDT Type 2 diabetes mellitus with hyperglycemia, without long-term current use of insulin (CMS/HCC HHS/HCC) HEMOGLOBIN, GLYCOSYLATED Routine 03/08/2025 1:56 PM CDT Type 2 diabetes mellitus with hyperglycemia, without long-term current use of insulin (CMS/HCC HHS/HCC) from Last 3 Months or Most Recently Relevant to Health Maintenance Results * (ABNORMAL) POCT glucose (05/18/2025 8:32 AM CDT) Only the most recent of3 resultswithin the time period is included. GLUCOSE POC 182(H) 70 - 99 mg/dL 05/18/2025 8:33 AM CDT [facility] 05/18/2025 8:32 AM CDT Huan Rhodes MD POCT ORDERABLES - DEVICE Final Result [facility] [address] [place] [address], * Pathology (05/18/2025 12:00 AM CDT) PATHOLOGY [facility] Department of Laboratory Medicine [address] [place] [phone] , extension [id number] Pathology Report Surgical Pathology Report Name: PEPE LIN Specimen #: [id number] Age: 8 1950 (Age: 75) Location: [facility] Sex: M Procedure Date: 05/18/2025 [facility] #: [id number] Date Received: 05/18/2025 Date Reported: 05/24/2025 Provider: HUAN RHODES MD Source: A: Prostate, left lateral base, needle biopsy B: Prostate, left base, needle biopsy C: Prostate, left lateral mid, needle biopsy D: Prostate, left medial mid, needle biopsy E: Prostate, left lateral apex, needle biopsy F: Prostate, left medial apex, needle biopsy G: Prostate, right lateral base, needle biopsy H: Prostate, right base, needle biopsy I: Prostate, right lateral mid, needle biopsy J: Prostate, right medial mid, needle biopsy K: Prostate, right lateral apex, needle biopsy L: Prostate, right medial apex, needle biopsy M: Prostate, DANIEL #1, needle biopsy N: Prostate, DANIEL #2, needle biopsy Clinical History: Elevated PSA. FINAL DIAGNOSIS: A. Prostate, left base lateral, needle biopsy: - Benign prostate tissue. B. Prostate, left base, needle biopsy: - Benign prostate tissue. C. 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 D. Prostate, left mid medial, needle biopsy: - Benign prostate tissue. E. Prostate, left apex lateral, needle biopsy: - Prostatic acinar adenocarcinoma, Minesh Score 3 + 3 = 6 (Grade Group 1), involving 1 of 1 core and 35% of the tissue. - Perineural invasion is present. F. Prostate, left apex medial, needle biopsy: - Prostatic acinar adenocarcinoma, Minesh Score 3 + 3 = 6 (Grade Group 1), involving 1 of 1 core and 60% of the tissue. G. Prostate, right base lateral, needle biopsy: - Prostatic acinar adenocarcinoma, Dudley Score 3 + 4 = 7 (Grade Group 2), involving 2 of 2 cores and 75% of the tissue. - Perineural invasion is present. H. Prostate, right base, needle biopsy: - Prostatic acinar adenocarcinoma, Minesh Score 3 + 4 = 7 (Grade Group 2), involving 1 of 1 core and 65% of the tissue. - Perineural invasion is present. I. Prostate, right mid lateral, needle biopsy: - Prostatic acinar adenocarcinoma, Minesh Score 4 + 3 = 7 (Grade Group 3), involving 1 of 1 core and 65% of the tissue. - Perineural invasion is present. J. Prostate, right mid medial, needle biopsy: - Benign prostate tissue. K. Prostate, right apex lateral, needle biopsy: - Benign prostate tissue. L. Prostate, right apex medial, needle biopsy: - Benign prostate tissue. M. Prostate, region of interest #1, needle biopsy: - Prostatic acinar adenocarcinoma, Dudley Score 4 + 3 = 7 (Grade Group 3), involving 3 of 3 cores and 65% of the tissue. - Perineural invasion is present. N. Prostate, region of interest #2, needle biopsy: -Prostatic acinar adenocarcinoma, Dudley Score 3 + 4 = 7 (Grade Group 2), involving 4 of 4 cores and 55% of the tissue. - Focal intraductal carcinoma is present. Diagnosis Comment: A triple immunostain for AMACR/p63/HMWK is performed on blocks C1, M1, and N1 to assess for invasive carcinoma. Invasive carcinoma is identified, characterized by strong reactivity for AMACR and an absence of basal cell markers p63/HMWK. Focal intraductal carcinoma is identified in block N1 characterized by retained basal cell markers. Gross Description: A. Received in formalin, labeled with a patient label and as left base lateral is a single less than 0.1 cm in diameter delicate white-barboza tissue core that has a length of 1.0 cm. The specimen is entirely submitted in cassette A1. B. Received in formalin, labeled with a patient label and as left base is a single less than 0.1 cm in diameter delicate white-barboza tissue core that has a length of 1.1 cm. The specimen is entirely submitted in cassette B1. C. Received in formalin, labeled with a patient label and as left mid lateral are 2 less than 0.1 cm in diameter delicate white-barboza tissue cores that range from 0.4 to 0.7 cm. The specimen is entirely submitted in cassette C1. D. Received in formalin, labeled with a patient label and as left mid medial is a single less than 0.1 cm in diameter delicate white-barboza tissue core that has a length of 1.0 cm. The specimen is entirely submitted in cassette D1. E. Received in formalin, labeled with a patient label and as left apex lateral is a single less than 0.1 cm in diameter delicate white-barboza tissue core that has a length of 0.8 cm. The specimen is entirely submitted in cassette E1. F. Received in formalin, labeled with a patient label and as left apex medial is a single less than 0.1 cm in diameter delicate white-barboza tissue core that has a length of 1.0 cm. The specimen is entirely submitted in cassette F1. G. Received in formalin, labeled with a patient label and as right base lateral are 2 less than 0.1 cm in diameter delicate pink-barboza tissue cores 0.3 and 0.5 cm in length. The specimen is entirely submitted in cassette G1. H. Received in formalin, labeled with a patient label and as right base is a single less than 0.1 cm in diameter delicate pink-barboza tissue core that has a length of 1.1 cm. The specimen is entirely submitted in cassette H1. I. Received in formalin, labeled with a patient label and as right mid lateral is a single less than 0.1 cm in diameter delicate white-barboza tissue core that has a length of 1.0 cm. The specimen is entirely submitted in cassette I1. J. Received in formalin, labeled with a patient label and as right mid medial is a single less than 0.1 cm in diameter delicate white-barboza tissue core that has a length of 1.2 cm. The specimen is entirely submitted in cassette J1. K. Received in formalin, labeled with a patient label and as right apex lateral is a single less than 0.1 cm in diameter delicate white-barboza tissue core that has a length of 0.5 cm. The specimen is entirely submitted in cassette K1. L. Received in formalin, labeled with a patient label and as right apex medial is a single less than 0.1 cm in diameter delicate white-barboza tissue core has a length of 1.0 cm. The specimen is entirely submitted in cassette L1. M. Received in formalin, labeled with a patient label and as DANIEL #1 are 3 less than 0.1 cm in diameter delicate white-barboza tissue cores that range from 0.8 to 1.0 cm in length. The specimen is entirely submitted in cassette M1. N. Received in formalin, labeled with a patient label and as DANIEL #2 are 5 less than 0.1 cm in diameter delicate pink-white tissue cores that range from 0.5 to 0.8 cm in length. The specimen is entirely submitted in cassette N1. All immunohistochemical and histochemical tests were developed by and performed at [facility], [address] [place] [address]. All tests reported here have not been cleared or approved by the U.S. Food and Drug Administration (FDA). This laboratory is regulated under CLIA as qualified to perform high-complexity testing. These tests are used for clinical purposes. They should not be regarded as investigational or for research. Positive and negative controls show appropriate reactivity. Gross examination (when applicable) was performed at [facility], [address] [place] [address]. This case was interpreted and signed out at [facility], [address] [place] [address]. Electronically Signed Out Betty Diamond M.D. [facility] TISSUE PROSTATE / Unknown 7:03 AM CDT Tissue specimen (specimen) PROSTATE / Unknown 05/18/2025 7:03 AM CDT Tissue specimen (specimen) PROSTATE / Unknown 05/18/2025 7:03 AM CDT Tissue specimen (specimen) PROSTATE / Unknown 05/18/2025 7:03 AM CDT Tissue specimen (specimen) PROSTATE / Unknown 05/18/2025 7:03 AM CDT Tissue specimen (specimen) PROSTATE / Unknown 05/18/2025 7:03 AM CDT Tissue specimen (specimen) PROSTATE / Unknown 05/18/2025 7:03 AM CDT Tissue specimen (specimen) PROSTATE / Unknown 05/18/2025 7:03 AM CDT Tissue specimen (specimen) PROSTATE / Unknown 05/18/2025 7:03 AM CDT Tissue specimen (specimen) PROSTATE / Unknown 05/18/2025 7:03 AM CDT Tissue specimen (specimen) PROSTATE / Unknown 05/18/2025 7:03 AM CDT Tissue specimen (specimen) PROSTATE / Unknown 05/18/2025 7:03 AM CDT Tissue specimen (specimen) PROSTATE / Unknown 05/18/2025 7:03 AM CDT Huan Rhodes MD PATHOLOGY/CYTOLOGY ORDERA BLES Final Result Performing Organization Address City/[facility] Co de Phone Number [facility] [address] [place] [address], [phone] * URINE BACTERIA CULTURE (05/12/2025 4:19 PM CDT) SPEC DESCRIPTION URINE CLEAN CATCH 05/12/2025 4:11 PM CDT [facility] SPECIAL REQUESTS NO SPECIAL REQUEST 05/12/2025 4:11 PM CDT [facility] CULTURE RESULT NO GROWTH 2 DAYS 05/15/2025 7:18 AM CDT [facility] URINE SPECIMEN OBTAINED BY CLEAN CATCH PROCEDURE / Unknown 05/12/2025 4:19 PM CDT 05/12/2025 4:20 PM CDT Huan Rhodes MD MICROBIOLOGY - GENERAL OR DERABLES Final Result Performing Organization Address City/[facility]/ZIP Co de Phone Number [facility] [address] [id number], [place] [phone] [facility] [address] [place] [address], [place] [phone] * (ABNORMAL) URINALYSIS (05/12/2025 4:12 PM CDT) COLOR (U) LIGHT YELLOW 05/12/2025 6:29 PM CDT [facility] TRANSPARENCY CLEAR 05/12/2025 6:29 PM CDT [facility] SPECIFIC GRAVITY (U) 1.020 1.002 - 1.030 05/12/2025 6:29 PM CDT [facility] U PH 6.0 4.5 - 8.0 05/12/2025 6:29 PM CDT [facility] LEUKOCYTES (U) NEGATIVE NEGATIVE 05/12/2025 6:29 PM CDT [facility] NITRITES NEGATIVE NEGATIVE 05/12/2025 6:29 PM CDT [facility] PROTEIN RANDOM (U) NEGATIVE NEGATIVE 05/12/2025 6:29 PM T [facility] GLUCOSE (U) 4+(A) NEGATIVE 05/12/2025 6:29 PM CDT [facility] KETONES MG/DL (U) NEGATIVE NEGATIVE 05/12/2025 6:29 PM T [facility] UROBILINOGEN NORMAL NORMAL EU/DL 05/12/2025 6:29 PM CDT [facility] BILIRUBIN (U) NEGATIVE NEGATIVE 05/12/2025 6:29 PM T [facility] BLOOD (U) NEGATIVE NEGATIVE 05/12/2025 6:29 PM CDT [facility] WBC/HPF MICROSCOPIC ANALYSIS NOT DONE ON URINES WITH NEGATIVE BIOCHEMICAL TESTS /HPF 05/12/2025 6:29 PM T [facility] URINE SPECIMEN OBTAINED BY CLEAN CATCH PROCEDURE / Unknown 05/12/2025 4:12 PM CDT Huan Rhodes MD URINE ORDERABLES Final Re sult Performing Organization Address City/[facility]/ZIP Co de Phone Number [facility] [address] [place] [address], [place] [phone] * PARTIAL THROMBOPLASTIN TIME,PTT (05/12/2025 4:12 PM CDT) PTT 32.1 25.1 - 36.5 SEC 05/12/2025 5:22 PM CDT [facility] 05/12/2025 4:12 PM CDT Huan Rhodes MD LABORATORY Final Res ult Performing Organization Address [facility]/ZIP Co de Phone Number [facility] [address] [place] [address], [place] [phone] * PROTIME/INR, VENOUS (05/12/2025 4:12 PM CDT) PROTIME 11.6 9.4 - 12.5 SEC 05/12/2025 5:22 PM CDT [facility] INR 1.0 0.9 - 1.1 05/12/2025 5:22 PM CDT [facility] Comment: Recommended INR Therapeutic Goals: 2.0-3.0 Routine Therapy 2.5-3.5 Mechanical Prosthetic Valves (High Risk) 05/12/2025 4:12 PM CDT Huan Rhodes MD LABORATORY Final Res ult Performing Organization Address City/[facility]/ZIP Co de Phone Number [facility] [address] [place] [address], [place] [phone] * (ABNORMAL) BASIC METABOLIC PANEL (05/12/2025 4:12 PM CDT) [facility] GLUCOSE 206(H) 70 - 99 MG/DL 05/12/2025 5:32 PM CDT [facility] BUN 12 7 - 18 MG/DL 05/12/2025 5:32 PM CDT [facility] CREATININE S/P/B 1.00 0.7 - 1.3 MG/DL 05/12/2025 5:32 PM T [facility] SODIUM S/P/B 140 136 - 145 MMOL/L 05/12/2025 5:32 PM T [facility] POTASSIUM S/P/B 3.7 3.5 - 5.1 MMOL/L 05/12/2025 5:32 PM T [facility] CHLORIDE S/P/B 103 100 - 108 MMOL/L 05/12/2025 5:32 PM T [facility] CO2 29.4 21 - 32 MMOL/L 05/12/2025 5:32 PM T [facility] CALCIUM S/P/B 8.5 8.5 - 10.1 MG/DL 05/12/2025 5:32 PM T [facility] ANION GAP 7.6 5 - 15 MMOL/L 05/12/2025 5:32 PM T [facility] BUN CREATININE RATIO 12.0 6 - 26 05/12/2025 5:32 PM T [facility] GFR ESTIMATE 79(L) >90 ML/MIN/1.7 3 M2 05/12/2025 5:32 PM T [facility] Comment: NOTE: eGFR is not calculated for patients <18 years of age. This is an estimated GFR calculation using the new CKD EPI creatinine equation without race and so does not require a correction factor for race. This estimated GFR should not be used for calculating drug doses. 05/12/2025 4:12 PM CDT Huan Rhodes MD LABORATORY Final Res ult [facility] [address] [place] [address], [place] [phone] * (ABNORMAL) CBC W/DIFF AUTOMATED (05/12/2025 4:12 PM CDT) WBC 7.51 4.50 - 11.00 x10'3/uL 05/12/2025 5:11 PM CDT [facility] RBC 4.57(L) 4.70 - 6.10 x10'6/uL 05/12/2025 5:11 PM CDT [facility] HGB 14.0 14.0 - 18.0 G/DL 05/12/2025 5:11 PM CDT [facility] HCT 43.6 43.0 - 54.0 % 05/12/2025 5:11 PM CDT [facility] MCV 95.4(H) 80.0 - 94.0 FL 05/12/2025 5:11 PM CDT [facility] MCH 30.6 27.0 - 31.0 PG 05/12/2025 5:11 PM CDT [facility] MCHC 32.1 32.0 - 36.0 G/DL 05/12/2025 5:11 PM CDT [facility] RDW 13.2 11.5 - 14.5 % 05/12/2025 5:11 PM CDT [facility] PLT 281 130 - 400 x10'3/uL 05/12/2025 5:11 PM CDT [facility] MPV 9.7 9.3 - 12.2 FL 05/12/2025 5:11 PM CDT [facility] CBC COMMENT AUTOMATED RBC MORPHOLOGY AND PLATELET EVALUATION NORMAL 05/12/2025 5:11 PM CDT [facility] NEUTROPHILS % 62.7 % 05/12/2025 5:11 PM CDT [facility] LYMPHOCYTES % 27.2 % 05/12/2025 5:11 PM CDT [facility] MONOCYTES % 8.3 % 05/12/2025 5:11 PM CDT [facility] EOSINOPHILS 1.3 % 05/12/2025 5:11 PM CDT [facility] BASOPHILS 0.1 % 05/12/2025 5:11 PM CDT [facility] IMMATURE GRANS % 0.4 % 05/12/20 5:11 PM CDT [facility] NRBC % 0.0 % 05/12/2025 5:11 PM CDT [facility] ABS. NEUTROPHILS TOTAL 4.71 1.80 - 7.70 x10'3/uL 05/12/2025 5:11 PM CDT [facility] ABS. LYMPHOCYTES 2.04 1.00 - 4.80 x10'3/uL 05/12/2025 5:11 PM CDT [facility] ABS. MONOCYTES 0.62 0.30 - 0.82 x10'3/uL 05/12/2025 5:11 PM CDT [facility] ABS. EOSINOPHILS 0.10 0.04 - 0.54 x10'3/uL 05/12/2025 5:11 PM CDT [facility] ABS. BASOPHILS 0.01 0.01 - 0.08 x10'3/uL 05/12/2025 5:11 PM CDT [facility] ABS. IMMATURE GRANULOCYTES 0.03 0.00 - 0.49 x10'3/uL 05/12/2025 5:11 PM CDT [facility] ABS. NUCLEATED RBC'S 0.00 0.00 - 0.01 x10'3/uL 05/12/2025 5:11 PM CDT [facility] 05/12/2025 4:12 PM CDT Huan Rhodes MD LABORATORY Final Res ult [facility] [address] [place] [address], [place] [phone] * (ABNORMAL) HEMOGLOBIN, GLYCOSYLATED (03/08/2025 1:56 PM CDT) HGB A1C 8.3(H) <5.7 % 03/08/2025 9:20 PM CDT [facility] Comment: ADA GUIDELINES 2010 5.7 TO 6.4% INCREASED RISK OF DIABETES > OR = 6.5% CONSISTENT WITH DIABETES ESTIMATED AVG GLUCOSE 192 mg/dL 03/08/2025 9:20 PM CDT [facility] 03/08/2025 1:56 PM CDT Sarah Lazcano [facility] Final Re sult [facility] [address] [place] [address], [place] [phone] * LIPID PANEL (03/08/2025 1:56 PM CDT) CHOLESTEROL 164 <200 MG/DL 03/08/2025 2:47 PM CDT [facility] TRIGLYCERIDES 42 <150 MG/DL 03/08/2025 2:47 PM CDT [facility] HDL 71 >40.0 MG/DL 03/08/2025 2:47 PM CDT [facility] LDL (CALCULATED) 85 <100 MG/DL 03/08/20 2:47 PM CDT [facility] Comment:CALCULATED USING THE FRIEDEWALD EQUATION NON HDL CHOLESTEROL 93 <130 MG/DL 03/08 2:47 PM CDT [facility] Comment: NOTE: WHEN THE TRIGLYCERIDES ARE >200 mg/dL, NON HDL C IS A SECONDARY TARGET OF THERAPY, WITH A GOAL 30 mg/dL HIGHER THAN THE IDENTIFIED LDL C GOAL. CHOL/HDL RATIO 2.3 0.0 - 4.5 03/08/2025 2:47 PM CDT [facility] VLDL CALCULATION 8 5 - 55 MG/DL 03/08/2025 2:47 PM CDT [facility] LIPID INTERPRETATION 03/08/2025 2:47 PM CDT [facility] Comment: NIH CONCENSUS REPORT RECOMMENDATIONS: ADULT CHILD LOW RISK: CHOLESTEROL <200 <170 TRIGLYCERIDE <150 --- HDL >=60 --- LDL <100 <110 BORDERLINE: CHOLESTEROL 200-239 170-199 TRIGLYCERIDE 150-199 --- HDL 40-59 --- LDL 100-159 110-129 HIGH RISK: CHOLESTEROL >=240 >=200 TRIGLYCERIDE >=200 --- HDL <40 --- LDL >=160 >=130 03/08/2025 1:56 PM CDT Sarah Lazcano [facility] LABORATORY Final Re sult [facility] [address] [place] [address], * HEPATITIS C ANTIBODY (03/08/2025 1:56 PM CDT) HEPATITIS C AB NON-REACTI VE NON-REACTI VE 03/08/2025 8:57 PM CDT [facility] 03/08/2025 1:56 PM CDT Sarah Lazcano [facility]- LABORATORY Final Re sult [facility] [address] [place] [address], from Last 3 Months or Most Recently Relevant to Health Maintenance Insurance MEDICARE [facility] Care Teams Transit Planning Director Relationship Specialty Start Date End Date Sarah Lazcano, [facility] [address], [address] [place] [address] PCP - General NURSE PRACTITIONER 03/08/25
--- OUTSIDE RECORDS SUMMARY | 2025-06-10 07:44 | XMS_ITS | Encounter Summary ---
Author Organization [facility] Address [address] [place] [id number] Care Team Providers Care Cream Dipper Name Role Phone Sarah Lazcano [facility] Primary Care Provider + Encounter Details Date Type Department Care Team (Late st Contact Info) Description 04/26/2025 Showcase Message [facility] [address] [place] [phone] Sarah Lazcano [facility] [address] [facility] [facility] [address] [place] [address] Thony Social History Tobacco Use Types Packs/Day Years [...] file Travel History Travel Start Travel End [place] 04/11/2025 05/12/2025 documented as of this encounter Plan of Treatment Not on file documented as of this encounter Visit Diagnoses Not on filedocumented in this encounter Care Teams Cream Dipper Relationship Specialty Start Date End Date Sarah Lazcano [facility] [address] [facility], [address] [place], [place] [id number] PCP - General NURSE PRACTITIONER 03/08/25 documented as of this encounter
--- OUTSIDE RECORDS SUMMARY | 2025-06-10 07:44 | XMS_ITS | Clinical Summary ---
Author Organization [facility] Address [address] [place] [address] Care Team Providers Care Funeral Driver Name Role Phone Unavailable Primary Care Provider Unavailabl e Source Comments [facility],non-owned Affiliates and Associated Physician Practices is amultiple site organization consisting of ambulatory clinics and hospital sitesin [place], [place], [place] and [place]. This disclosure is being madepursuant to the Care Everywhere program and may not contain all information available regarding this patient. Last updated 18.[facility] Allergies No known active allergies Medications * Be aware that medications may not be up to date on this document. Alwaysverify current medications with the patient. aspirin EC (ECOTRIN) 325 MG tablet Take 1 (one) tablet by mouth once daily Active esomeprazole (NEXIUM) 40 MG capsule Take 1 (one) capsule by mouth daily before breakfast Active acetaminophen (TYLENOL) 500 MG tablet Take 1 (one) tablet by mouth every 4 hours as needed for Fever or Pain Maximum allowable Acetaminophen amount = 4 Grams (4000 mg) / 24 hours. Active atorvastatin (Lipitor) 20 MG tablet 07/02/20 23 Active cetirizine (ZyrTEC) 10 MG tablet 07/02/20 23 Active Antifungal Clotrimazole 1 % cream 06/08/20 23 Active fexofenadine (Mita) 180 MG tablet 02/05/20 23 Active miconazole (Micatin) 2 % cream 03/14/20 22 Active omeprazole (PriLOSEC) 20 MG capsule 07/02/20 23 Active sildenafil (Viagra) 100 MG tablet 07/02/20 23 Active Active Problems Problem Noted Date Diagnosed Date Foreign body in digestive tract, initial encount er 07/13/2023 Spondylolisthesis, lumbar region 03/23/2021 History of total right knee replacement 01/02/20 16 Social History Tobacco Use Types Packs/Day Years Used Date Smoking Tobacco: Never Smokeless Tobacco: Never Tobacco Cessation:Counseling Given: No Alcohol Use Standard Drinks/Week Comments Yes 0 (1 standard drink = 0.6 oz pur e alcohol) AUDIT-C Answer Date Recorded Q1: How often do you have a drink containing alc ohol? Monthly or less 07/13/2023 Q2: How many drinks containi ng alcohol do you have on a typical day when you are drinking? 1 or 2 07/13/2023 Q3: How often do you have si x or more drinks on one occasion? Never 07/13/2023 Overall Financial Resource Strain (CARDIA) Answe r Date Recorded How hard is it for you to pa y for the very basics like food, housing, medical care, and heating? Not hard at all 07/13/2023 [facility] - Occupational Stress Questionnaire Answer Date Recorded Do you feel stress - tense, restless, nervous, or anxious, or unable to sleep at night because your mind is troubled all the time - these days? Not at all 07/13/2023 Hunger Vital Sign Answer Date Recorded Within the past 12 months, y ou worried that your food would run out before you got the money to buy more. Never true 07/13/20 23 Within the past 12 months, t he food you bought just didn't last and you didn't have money to get more. Never true 07/13/2023 PRAPARE - Transportation Answer Date Re corded In the past 12 months, has l ack of transportation kept you from medical appointments or from getting medications? No 06/16 In the past 12 months, has l ack of transportation kept you from meetings, work, or from getting things needed for daily living? No 07/13/2023 Housing Stability Vital Sign Answer Khurram e Recorded In the last 12 months, was t here a time when you were not able to pay the mortgage or rent on time? No 07/13/2023 In the last 12 months, how many places have you lived? 1 07/13/2023 In the last 12 months, was t here a time when you did not have a steady place to sleep or slept in a usp (including now)? 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 Gender Identity Not on file Sexual Orientation Not on file Last Filed Vital Signs Vital Sign Reading Time Taken Comments Blood Pressure 120/77 07/23/2023 2:02 PM M48/M60 TANK DRIVER Pulse 97 07/23/2023 2:02 PM M48/M60 TANK DRIVER Temperature 36.8 C (98.3 F) 07/23/2023 2:02 PM M48/M60 TANK DRIVER Respiratory Rate 19 07/15/2023 11:59 AM CDT Oxygen Saturation 97% 07/23/2023 2:02 PM M48/M60 TANK DRIVER Inhaled Oxygen Concentration - - Weight 103.4 kg (228 lb) 07/23/2023 2:02 PM M48/M60 TANK DRIVER Height 184.2 cm (6' 0.5) 07/23/2023 2:02 PM M48/M60 TANK DRIVER Body Mass Index 30.5 07/23/2023 2:02 PM M48/M60 TANK DRIVER Plan of Treatment Health Maintenance Due Date Last Done Comments COLOGUARD (AGES 45-75) - COLON CA SCREENING 1951 COLON MONITORING 1950 COLONOSCOPY - COLON CA SCREENING 1950 CT COLONOGRAPHY - COLON CA SCREENING 1950 Colorectal Cancer Screening 1950 FIT - COLON CA SCREENING 1950 FLEX SIG - COLON CA SCREENING 1950 MEDICARE AWV 12 MONTHS 1950 HEPATITIS C SCREENING 04/23/1969 DTAP/TDAP/TD VACCINES (1 - Tdap) 1970 PNEUMOCOCCAL VACCINE 50+ (1 of 1 - PCV) 2001 ZOSTER VACCINE (1 of 2) 2001 DEPRESSION SCREENING 09/15/2024 COVID-19 VACCINE ( - 2024- season) 2025 07/30/2022, 07/07/2021, 12/13/2020, Additional history exists INFLUENZA VACCINE (#1) 2025 2, 07/05/2020, 06/15/2020, Additional history exists Respiratory Syncytial Virus (RSV) Vaccine Pt: or over 60 yrs (1 - 1-dose 75+ series) 2026 HEPATITIS B VACCINE Aged Out No longe r eligible based on patient's age to complete this topic HIB VACCINE Aged Out No longer eligi ble based on patient's age to complete this topic HPV VACCINE Aged Out No longer eligi ble based on patient's age to complete this topic MENINGOCOCCAL (Group B) VACCINE SHARED DECISION-MAKING Aged Out No longer eligible based on patient's age to complete this topic MENINGOCOCCAL GROUPS A/C/Y/W VACCINE Aged Out No longer eligible based on patient's age to complete this topic Insurance [employer] MED[employer] MEDICARE Advance Directives * Full Code (Latest Code Status on File) Date Activated Date Inactivated Comments 07/13/2023 9:49 PM 07/15/2023 2:49 PM
== END 2025-06-10 07:40 | disposition home or self-care (01) ==
PROVIDERS: PCP Nurse Practitioner; Visit Provider Urology
DX: N40.0 Benign prostatic hyperplasia without lower urinary tract symptoms (principal); C61 Malignant neoplasm of prostate
CPT/HCPCS: 78815; A9596